=== PATIENT | male | born 1995 | race Caucasian/White ===

== ENCOUNTER 2021-04-07 10:25 | Emergency (ER) | payer OTHER, SELFPAY ==
[2021-04-07 10:39] VITALS: BP 150/95; PULSE 67; RESP 20; TEMP 36.6; O2SAT 100
--- NOTE | 2021-04-07 10:47 | ED.BACK ---
HPI - Back Pain/Injury General Chief Complaint: Back Pain/Injury Stated Complaint: Neck and Back pain, Headache Time Seen by Provider: 04/07/21 10:47 Source: patient and RN notes reviewed Mode of arrival: ambulatory Limitations: no limitations History of Present Illness HPI Narrative: 26-year-old male presents with concern for neck and back muscle strain. 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 Reports he has been tolerating the symptoms, has not taken any medication or had any other intervention. Reports over the last 2 to 3 days symptoms worsened, causing headache. He denies loss of bowel or bladder function, weakness in any extremity, perianal anesthesia, abdominal pain, dysuria, hematuria, urine frequency, fever. He denies any history of injury or trauma. MD elicited complaint: back pain Related Data Allergies Allergy/AdvReac Type Severity Reaction Status Date / Time No Known Allergies Allergy Verified 04/07/21 10:49 Review of Systems Review of Systems: Narrative: CONSTITUTIONAL: Denies malaise, chills, sweats, or fever. EYES: Denies visual changes CARDIOVASCULAR: Denies chest pain, palpitations, or edema. RESPIRATORY: Denies cough or dyspnea. GASTROINTESTINAL: Denies abdominal pain, nausea, vomiting, diarrhea, bloody, or mucous stools. GENITOURINARY: Denies dysuria or hematuria. SKIN: Denies bruising, redness, open skin MUSCULOSKELETAL: Reports back pain, right-sided neck muscle pain NEUROLOGIC: Denies numbness, weakness. Reports headache. All systems reviewed & are unremarkable except as noted in HPI and below PMFSH Comments At time of signature, agree with nursing past medical, surgical, social and family history. There is no relevant family history pertinent to the presenting complaint Exam Narrative: Exam Narrative: GENERAL: Well-appearing, well-nourished, and in no acute distress. HEAD: Normocephalic, atraumatic. EYES: PERRLA and EOMI. NECK: Supple. No lymphadenopathy. CHEST: Clear to auscultation. No respiratory distress. HEART: Regular rate and rhythm. Distal pulses palpable and equal, cap refill <3 seconds ABDOMEN: Soft, nontender, nondistended, normal active bowel sounds, no palpable or pulsatile masses. No CVA tenderness MUSCULOSKELETAL: Normal range of motion and strength in all extremities; 5/5 strength with upper extremity and hip flexion and extension, dorsiflexion and extension, knee flexion and extension, plantar flexion and extension. Normal sensation in dermatomal distributions with sensitivity to light touch and pain. No midline back tenderness to palpation. No paraspinal tenderness. Transfers from lying to sitting to standing. SKIN: Warm, dry, no rash. No ecchymosis, erythema, open wounds to back. NEURO: No focal deficits. Alert and oriented x3. Normal gait. PSYCH: Normal mood and affect Course Course Emergency Course: Patient is aware of diagnosis, understands and agrees to treatment plan. Anticipatory guidance given. Patient agrees to follow-up as directed and is aware of reasons to seek care at the emergency department. Portions of this record may have been created with voice recognition software Vital Signs Vital signs: Vital Signs Temperature 97.9 F 04/07/21 10:39 Pulse Rate 67 04/07/21 10:39 Respiratory Rate 04/07/21 10:39 Blood Pressure 150/95 H 04/07/21 10:39 Pulse Oximetry 100 04/07/21 10:39 Temperature 97.9 F 04/07/21 10:39 Pulse Rate 67 04/07/21 10:39 Respiratory Rate 04/07/21 10:39 Blood Pressure 150/95 H 04/07/21 10:39 Pulse Oximetry 100 04/07/21 10:39 Reviewed. Pt has been instructed to follow up with his primary care provider within the next week regarding his elevated blood pressure today. MDM - Back Pain/Injury MDM Narrative Medical decision making narrative: No risk factors or findings concerning for epidural absces
[2021-04-07] MEDS: KETOROLAC (*BKC) 60 MG/2 ML VIAL IM (11:02)
== END 2021-04-07 11:27 | disposition home or self-care (01) ==
PROVIDERS: Emergency Provider Nurse Practitioner
DX: S16.1XXA Strain of muscle, fascia and tendon at neck level, initial encounter (principal); X58.XXXA Exposure to other specified factors, initial encounter; Y99.0 Civilian activity done for income or pay
CPT/HCPCS: 96372; 99203; G0463; J1885

== ENCOUNTER 2021-04-18 12:38 | Emergency (ER) | payer OTHER, SELFPAY ==
--- NOTE | ~2021-04-18 | XR_ITS ---
EXAMINATION:[id number] DATE: 04/18/2021 14:25 INDICATION: Neck pain TECHNIQUE: AP, lateral, and odontoid views of the cervical spine are provided. COMPARISON: None FINDINGS: Alignment is normal. There is straightening of the cervical spine which can be positional o r due to muscular spasm. The odontoid is intact. No fracture is identified. Vertebral body heights an d disk spaces are normal. Prevertebral soft tissues are normal. IMPRESSION: 1. No acute osseous abnormality. Reviewed, dictated and finalized at location A.
--- NOTE | ~2021-04-18 | XR_ITS ---
EXAMINATION: XR lumbar spine 2-3V DATE: 04/18/2021 14:25 INDICATION: Low back pain TECHNIQUE: Anteroposterior and lateral views of the lumbar spine, and cone-down lateral view of the l umbosacral junction were obtained. COMPARISON: None. FINDINGS: There is no fracture, dislocation, or subluxation. The vertebral body heights, alignment, a nd intervertebral disc spaces are normal. The paravertebral soft tissues are unremarkable. IMPRESSION: 1. No acute osseous abnormality. Reviewed, dictated and finalized at location A.
[2021-04-18 12:46] VITALS: BP 129/86; PULSE 81; RESP 14; TEMP 36.4; O2SAT 99
--- NOTE | 2021-04-18 14:16 | ED.GENADULT ---
HPI - General Adult General Chief complaint: Back Pain/Injury Stated complaint: neck and back pain Time Seen by Provider: 04/18/21 13:24 Source: patient Mode of arrival: ambulatory Limitations: no limitations History of Present Illness HPI narrative: Patient is a 26 year old male who presents complaining of neck and back pain. Patient reports neck pain that radiates to head and lower back. 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 Patient reports being seen in Urgent Care last week for same. He denies numbness and tingling in extremities and denies loss of bowel or bladder control. Patient describes pain as stabbing and states it feels like spikes into my head . He reports pain is worse at night and often awakens him. He reports pain has steadily increased in intensity and frequency over the past week. He reports intermittent headaches but none in the past week. He reports taking muscle relaxer and pain medication without relief. Patients religion department chair are equal and steady gait noted. MD complaint: neck, back pain Related Data Allergies Allergy/AdvReac Type Severity Reaction Status Date / Time No Known Allergies Allergy Verified 04/07/21 10:49 Review of Systems Review of Systems: CONSTITUTIONAL: Denies fever, chills, or sweats. EYES: Denies visual changes, redness, or discharge. ENT: Denies rhinorrhea, congestion, sore throat, or otalgia. CARDIOVASCULAR: Denies chest pain, palpitations, or edema. RESPIRATORY: Denies cough or dyspnea. GASTROINTESTINAL: Denies abdominal pain, nausea, vomiting, or diarrhea. GENITOURINARY: Denies dysuria or hematuria. SKIN: Denies rash or itching. MUSCULOSKELETAL: Reports neck and back pain NEUROLOGIC: Denies headache, numbness, dizziness, or weakness. PSYCHIATRIC: Denies anxiety or depression. Exam Narrative: GENERAL: Well-appearing, well-nourished, and in no acute distress. HEAD: Normocephalic, atraumatic. EYES: EOMI. No redness or drainage. Conjunctiva are normal. ENT: Mucous membranes pink and moist NECK: AROM. Supple. No lymphadenopathy. Tenderness with palpation to cervical area CHEST: No respiratory distress. Clear to auscultation. HEART: Regular rate and rhythm. No murmur appreciated. Normal peripheral pulses. MUSCULOSKELETAL: Tenderness with palpation to right lumbar spine EXTREMITIES: Normal range of motion. No edema. SKIN: Warm, dry, no rash. NEURO: No focal deficits. Alert and oriented x3. Gait steady. PSYCH: Normal affect. No signs of depression or anxiety. Course Vital Signs Vital signs: Vital Signs Temperature 36.4 C 04/18/21 12:46 Pulse Rate 81 04/18/21 12:46 Respiratory Rate 14 04/18/21 12:46 Blood Pressure 129/86 04/18/21 12:46 Pulse Oximetry 99 04/18/21 12:46 Temperature 36.4 C 04/18/21 12:46 Pulse Rate 81 04/18/21 12:46 Respiratory Rate 14 04/18/21 12:46 Blood Pressure 129/86 04/18/21 12:46 Pulse Oximetry 99 04/18/21 12:46 Reviewed. Patient has been instructed to follow-up with his PCP regarding his blood pressure. Medical Decision Making MDM Narrative Medical decision making narrative: Patient's labs are unremarkable, x-ray shows no acute osseous injury. Patient is afebrile nontoxic. Discussed with patient the need to follow-up with his PCP as well as possible further evaluation by spine/neuro surgeon. Patient is aware of red flags and when to return to the emergency department. Patient stable for discharge home with outpatient follow-up as discussed. Vital Signs Vital Signs: Vital Signs Temperature 36.4 C 04/18/21 12:46 Pulse Rate 81 04/18/21 12:46 Respiratory Rate 14 04/18/21 12:46 Blood Pressure 129/86 04/18/21 12:46 Pulse Oximetry 99 04/18/21 12:46 Temperature 36.4 C 04/18/21 12:46 Pulse Rate 81 04/18/21 12:46 Respiratory Rate 14 04/18/21 12:46 Blood Pressure 129/86 04/18/21 1
[2021-04-18 14:40] LABS: Basophils Percent Auto 0.3 % (0.2-1.2); Eosinophils Absolute Auto 0.3 K/mm3 (0-0.3); Eosinophils Percent Auto 4.3 % (0-4.4); Hematocrit 48.1 % (42.0-52.0); Hemoglobin 16.2 g/dL (14.0-18.0); Immature Granulocyte Absolute 0.03 K/mm3 (0.00-0.031); Immature Granulocyte Percent A 0.4 % (0-0.5); Lymphocytes Absolute Auto 2.33 K/mm3 (0.9-3.2); Lymphocytes Percent Auto 32.3 % (18.3-44.2); Mean Corpuscular HGB Conc 33.7 g/dl (32-36); Mean Corpuscular Volume 83.2 fl (80-100); Mean Platelet Volume 10.8 fl (7.4-10.4); Monocytes Absolute Auto 0.4 K/mm3 (0.1-0.6); Monocytes Percent Auto 5.3 % (2.6-8.5); Neutrophils Absolute Auto 4.2 K/mm3 (1.3-6.7); Neutrophils Percent Auto 57.4 % (45.5-73.1); Platelet Count Result 197 k/mm3 (150-375); Red Blood Count 5.78 M/mm3 (4.6-6.20); Red Cell Distribution Width 12.5 % (11.5-14.5); White Blood Count 7.2 K/mm3 (4.5-10.0)
[2021-04-18 14:52] LABS: Anion Gap 11 mmol/L (8-16); Blood Urea Nitrogen 10 mg/dL (9-20); Calcium 9.6 mg/dL (8.4-10.2); Carbon Dioxide 28 mmol/L (22-30); Chloride 102 mmol/L (98-107); Estimated CRCL calculation 99 ml/min; Estimated Glomerular Filt Rate > 60; Glucose 97 mg/dL (65-110); Potassium 4.2 mmol/L (3.4-5.0); Sodium 141 mmol/L (137-145)
[2021-04-18 14:54] LABS: CRP < 0.5 mg/dL (<1.0)
[2021-04-18 15:10] LABS: Erythrocyte Sedimentation Rate 1 mm/hr (0-20)
[2021-04-18 15:43] VITALS: BP 126/75; PULSE 72; RESP 16; O2SAT 99
== END 2021-04-18 15:44 | disposition home or self-care (01) ==
PROVIDERS: Emergency Provider Nurse Practitioner
DX: M54.12 Radiculopathy, cervical region (principal); R03.0 Elevated blood-pressure reading, without diagnosis of hypertension
CPT/HCPCS: 36415; 72040; 72100; 80048; 85025; 85652; 86140; 99283